=== PATIENT | female | born 1955 | race Two or more races ===

== ENCOUNTER → 2025-01-16 | Outpatient (CLI) | payer MEDICARE, MEDICAID, SELFPAY ==
--- NOTE | 2025-01-16 | XR_ITS ---
Examination: PA lateral chest 2 views TECHNIQUE: Upright PA lateral chest 2 views Date and time: January 16, 2025 1329 hours INDICATIONS: Coughing beginning 2 months ago. FINDINGS: Mild accentuation of basilar bronchovascular markings. Normal heart size. No pneumonia or pulmonary edema. IMPRESSION: Basilar bronchitis pattern
== END | disposition home or self-care (01) ==
LOC: COPL 12:23 → CDIM 12:24
PROVIDERS: PCP Nurse Practitioner Family; Referring Provider Nurse Practitioner Family; Visit Provider Nurse Practitioner Family
DX: R05.9 Cough, unspecified (principal)
CPT/HCPCS: 71046